=== PATIENT | female | born 1975 | race Caucasian/White ===

== ENCOUNTER 2021-04-29 19:47 | Emergency (ER) | payer OTHER, MEDICARE ==
[~2021-04-29 19:47] MED LIST: ALLEGRA ALLERG180 MG PO; MAXALT10 MG PO; NAPROXEN500 MG PO; NEURONTIN300 MG PO; NP THYROID60 MG PO; PYRIDIUM200 MG PO; SUDAFED30 MG PO; TRAMADOL HCL50 MG PO; TRIAMTERENE PO; ULTRAM50 MG PO; ZOFRAN4 MG PO
[2021-04-29 21:39] LABS: BASOPHIL 0.3 % (0-2); EOSINOPHIL 0.2 % (0-5); HCT 42.7 % (37.0-47.0); HGB 15.3 g/dl (12.5-16.0); LYMPHOCYTE 5.1 % (15-48); MCH 29.4 pg (25.0-31.0); MCHC 35.8 g/dL (32.0-36.0); MPV 10.1 fL (6.0-9.5); NEUTROPHIL 90.1 % (41-80); NRBC 0; PLT 277 K/uL (150-400); RBC 5.21 M/uL (4.20-5.40); RDW 12.3 % (11.5-14.0); WBC 14.2 K/uL (4.0-10.5)
[2021-04-29 21:52] LABS: INR 0.92 (0.9-1.2); PROTHROMBIN TIME 11.8 SECONDS (11.8-13.4); PTT 31.9 SECONDS (24.4-34.7)
[2021-04-29 21:53] LABS: D-DIMER 0.5 ug/mLFEU (0.00-0.41)
[2021-04-29 22:09] LABS: BILIRUBIN - TOTAL 0.3 mg/dL (0.2-1.0); BUN/CREAT RATIO (CALC) 8.6 RATIO; C-REACTIVE PROTEIN 0.7 mg/dL (<=0.90); CREATININE 0.7 mg/dL (0.51-0.95); GLOBULIN (CALCULATION) 3.7 g/dL; MAGNESIUM 1.2 mg/dL (1.8-2.4); POTASSIUM 2.5 mmol/L (3.5-5.1); TOTAL PROTEIN 7.7 g/dL (6.4-8.2)
[2021-04-29 22:17] LABS: PRO-BNP 26 pg/mL (<125)
[2021-04-29 22:45] LABS: LACTIC ACID 1.9 mmol/L (0.4-1.9)
[2021-04-30 02:29] LABS: BILIRUBIN NEGATIVE (NEGATIVE); BLOOD NEGATIVE Ery/uL (NEGATIVE); CLARITY CLEAR (CLEAR); COLOR YELLOW (YELLOW); GLUCOSE (U) NORMAL (NORMAL); LEUKOCYTES NEGATIVE Leu/uL (NEGATIVE); NITRITE NEGATIVE (NEGATIVE); PROTEIN TRACE (LOW) mg/dL (NEGATIVE); SPECIFIC GRAVITY 1.015 (1.001-1.030); UROBILINOGEN 0.2 mg/dL (0.2-1.0)
[2021-04-30] MEDS ORDERED: ONDANSETRON ODT4 MG PO (04:50)
[2021-04-30 05:29] LABS: BUN/CREAT RATIO (CALC) 14.9 RATIO; CREATININE 0.67 mg/dL (0.51-0.95); POTASSIUM 3.4 mmol/L (3.5-5.1)
== END 2021-04-30 05:59 | disposition home or self-care (01) ==
LOC: FER 19:47
PROVIDERS: Emergency Medicine; Internal Medicine
DX: U07.1 COVID-19 (principal); E87.6 Hypokalemia; E83.42 Hypomagnesemia; J44.9 Chronic obstructive pulmonary disease, unspecified; Z23 Encounter for immunization; Z88.0 Allergy status to penicillin; Z88.2 Allergy status to sulfonamides; Z88.5 Allergy status to narcotic agent
CPT/HCPCS: 36415; 70450; 80048; 80053; 81003; 82728; 83605; 83615; 83690; 83735; 83880; 84145; 84484; 85025; 85379; 85610; 85730; 86140; 94760; J1100; J1170; J1885; J2405; J3475; J3480; J7030; J7050; M0245; Q0245; U0002

== ENCOUNTER 2021-07-16 11:05 | Emergency (ER) | payer OTHER, MEDICARE ==
[~2021-07-16] VITALS: Ht 170.2 cm; Wt 67.1 kg
[~2021-07-16 11:05] MED LIST changes: +ONDANSETRON ODT4 MG PO
[2021-07-16 13:09] LABS: BASOPHIL 0.6 % (0-2); EOSINOPHIL 1.6 % (0-5); HCT 38.9 % (37.0-47.0); HGB 13.4 g/dl (12.5-16.0); LYMPHOCYTE 23.4 % (15-48); MCH 29.1 pg (25.0-31.0); MCHC 34.4 g/dL (32.0-36.0); MCV 84.4 fL (78.0-100.0); MONOCYTE 6.1 % (0-12); MPV 10.4 fL (6.0-9.5); NEUTROPHIL 68.1 % (41-80); NRBC 0; PLT 307 K/uL (150-400); RBC 4.61 M/uL (4.20-5.40); RDW 12.6 % (11.5-14.0); WBC 10.1 K/uL (4.0-10.5)
[2021-07-16 13:36] LABS: BUN/CREAT RATIO (CALC) 16.4 RATIO; CREATININE 0.61 mg/dL (0.51-0.95)
[2021-07-16] MEDS ORDERED: CLEOCIN300 MG PO (14:48)
[2021-07-16] MEDS ORDERED: KLOR-CON M2020 MEQ PO (14:49)
[2021-07-16] MEDS ORDERED: IBU800 MG PO (14:51)
== END 2021-07-16 16:45 | disposition home or self-care (01) ==
LOC: FER 11:05
PROVIDERS: Nurse Practitioner Family
DX: K11.20 Sialoadenitis, unspecified (principal); E87.6 Hypokalemia; J44.9 Chronic obstructive pulmonary disease, unspecified; Z88.2 Allergy status to sulfonamides; Z88.5 Allergy status to narcotic agent
CPT/HCPCS: 36415; 70487; 80048; 85025; J1885; J2405; J7030; Q9967

== ENCOUNTER 2021-11-12 17:48 | Emergency (ER) | payer OTHER, MEDICARE ==
[~2021-11-12 17:48] MED LIST changes: +CLEOCIN300 MG PO; +IBU800 MG PO; +KLOR-CON M2020 MEQ PO
[2021-11-12 19:10] LABS: BASOPHIL 0.7 % (0-2); EOSINOPHIL 1.2 % (0-5); HCT 38.9 % (37.0-47.0); HGB 13.9 g/dl (12.5-16.0); LYMPHOCYTE 30.3 % (15-48); MCH 29.8 pg (25.0-31.0); MCHC 35.7 g/dL (32.0-36.0); MCV 83.3 fL (78.0-100.0); MONOCYTE 8.2 % (0-12); MPV 10.6 fL (6.0-9.5); NEUTROPHIL 59.3 % (41-80); NRBC 0; PLT 325 K/uL (150-400); RBC 4.67 M/uL (4.20-5.40); WBC 7.6 K/uL (4.0-10.5)
[2021-11-12 19:18] LABS: INR 0.93 (0.9-1.2); PROTHROMBIN TIME 11.9 SECONDS (11.8-13.4)
[2021-11-12 19:19] LABS: PTT 33.7 SECONDS (24.4-34.7)
[2021-11-12 19:20] LABS: D-DIMER 0.3 ug/mLFEU (0.00-0.41)
[2021-11-12 19:25] LABS: MONOSPOT (MONONUCLEOSIS) NEGATIVE (NEGATIVE)
[2021-11-12 19:42] LABS: IRON % SATURATION 16.7 %SAT (20-50)
[2021-11-12 19:45] LABS: CORONAVIRUS 2019 SARS-COV-2 NEGATIVE (NEGATIVE); INFLUENZA A NAA NEGATIVE (NEGATIVE)
[2021-11-12 20:41] LABS: ALBUMIN 3.9 g/dL (3.4-5.0); ALKALINE PHOSHATASE 67 U/L (46-116); ALT 46 U/L (14-59); AST 25 U/L (15-37); BILIRUBIN - TOTAL 0.3 mg/dL (0.2-1.0); BUN 11 mg/dL (7-18); BUN/CREAT RATIO (CALC) 15.9 RATIO; CHLORIDE 99 mmol/L (98-107); CO2 (BICARBONATE) 26 mmol/L (21-32); CPK 180 U/L (26-192); CREATININE 0.69 mg/dL (0.51-0.95); FOLIC ACID (SERUM) 37.7 ng/mL (8.6-58.9); GLOBULIN (CALCULATION) 3.4 g/dL; GLUCOSE 103 mg/dL (74-106); LIPASE 76 U/L (73-393); MAGNESIUM 1.7 mg/dL (1.8-2.4); POTASSIUM 2.8 mmol/L (3.5-5.1); TOTAL PROTEIN 7.3 g/dL (6.4-8.2)
[2021-11-12 20:43] LABS: C-REACTIVE PROTEIN < 0.20 mg/dL (<=0.90)
[2021-11-12 20:48] LABS: BILIRUBIN NEGATIVE (NEGATIVE); BLOOD NEGATIVE Ery/uL (NEGATIVE); CLARITY CLEAR (CLEAR); COLOR YELLOW (YELLOW); GLUCOSE (U) NORMAL (NORMAL); LEUKOCYTES NEGATIVE Leu/uL (NEGATIVE); NITRITE NEGATIVE (NEGATIVE); PROTEIN NEGATIVE (NEGATIVE); UROBILINOGEN 0.2 mg/dL (0.2-1.0); pH 6.5 (5.0-9.0)
[2021-11-12 20:48] LABS: AMPHETAMINES NEGATIVE (NEGATIVE); BARBITURATES NEGATIVE (NEGATIVE); ECSTASY (MDMA) NEGATIVE (NEGATIVE); MARIJUANA (THC) NEGATIVE (NEGATIVE); METHADONE NEGATIVE (NEGATIVE); OPIATES NEGATIVE (NEGATIVE); OXYCODONE NEGATIVE (NEGATIVE)
== END 2021-11-13 02:50 | disposition home or self-care (01) ==
LOC: FER 17:48
PROVIDERS: Emergency Medicine; Internal Medicine
DX: E87.6 Hypokalemia (principal); E83.42 Hypomagnesemia; I10 Essential (primary) hypertension; J44.9 Chronic obstructive pulmonary disease, unspecified; Z88.0 Allergy status to penicillin; Z88.2 Allergy status to sulfonamides; Z88.5 Allergy status to narcotic agent; Z87.891 Personal history of nicotine dependence; Z28.310 Unvaccinated for COVID-19; Z20.822 Contact with and (suspected) exposure to COVID-19
CPT/HCPCS: 36415; 80053; 80305; 81003; 82550; 82607; 82728; 82746; 83540; 83550; 83605; 83690; 83735; 83880; 84145; 84439; 84443; 84484; 85025; 85379; 85610; 85730; 86140; 86308; 93005; J3475; J3480; J7050; U0002

== ENCOUNTER 2021-11-29 18:55 | Emergency (ER) | payer OTHER, MEDICARE ==
[2021-11-29 20:01] LABS: BASOPHIL 0.7 % (0-2); EOSINOPHIL 1.3 % (0-5); HCT 38.5 % (37.0-47.0); HGB 13.1 g/dl (12.5-16.0); LYMPHOCYTE 29.9 % (15-48); MCH 29.5 pg (25.0-31.0); MCV 86.7 fL (78.0-100.0); MONOCYTE 6.6 % (0-12); MPV 10.9 fL (6.0-9.5); NEUTROPHIL 61.3 % (41-80); NRBC 0; PLT 287 K/uL (150-400); RBC 4.44 M/uL (4.20-5.40); RDW 11.9 % (11.5-14.0)
[2021-11-29 20:30] LABS: ALBUMIN 3.5 g/dL (3.4-5.0); BILIRUBIN - TOTAL 0.1 mg/dL (0.2-1.0); BUN/CREAT RATIO (CALC) 11.7 RATIO; CREATININE 0.77 mg/dL (0.51-0.95); GLOBULIN (CALCULATION) 3.4 g/dL; MAGNESIUM 1.5 mg/dL (1.8-2.4); PHOSPHORUS 2.6 mg/dL (2.6-4.7); POTASSIUM 3.4 mmol/L (3.5-5.1); TOTAL PROTEIN 6.9 g/dL (6.4-8.2)
== END 2021-11-30 00:21 | disposition home or self-care (01) ==
LOC: FER 18:55
PROVIDERS: Emergency Medicine
DX: R07.89 Other chest pain (principal); E87.6 Hypokalemia; E83.42 Hypomagnesemia; J44.9 Chronic obstructive pulmonary disease, unspecified; Z88.5 Allergy status to narcotic agent; Z88.2 Allergy status to sulfonamides; Z88.0 Allergy status to penicillin; Z86.16 Personal history of COVID-19; Z87.891 Personal history of nicotine dependence; Z28.310 Unvaccinated for COVID-19
CPT/HCPCS: 36415; 71045; 80053; 83735; 83880; 84100; 84443; 84484; 85025; 85379; 93005; J3475; J7050

== ENCOUNTER 2021-12-31 19:09 | Emergency (ER) | payer OTHER, MEDICARE ==
[2021-12-31 20:01] LABS: BASOPHIL 0.6 % (0-2); EOSINOPHIL 1.4 % (0-5); HGB 13.7 g/dl (12.5-16.0); LYMPHOCYTE 30.9 % (15-48); MCHC 35.1 g/dL (32.0-36.0); MCV 85.5 fL (78.0-100.0); MONOCYTE 8.6 % (0-12); MPV 10.7 fL (6.0-9.5); NEUTROPHIL 58.1 % (41-80); NRBC 0; PLT 312 K/uL (150-400); RBC 4.56 M/uL (4.20-5.40); RDW 12.6 % (11.5-14.0); WBC 8.4 K/uL (4.0-10.5)
[2021-12-31 20:14] LABS: ALBUMIN 3.9 g/dL (3.4-5.0); BILIRUBIN - TOTAL 0.3 mg/dL (0.2-1.0); BUN/CREAT RATIO (CALC) 18.6 RATIO; CREATININE 0.86 mg/dL (0.51-0.95); GLOBULIN (CALCULATION) 3.4 g/dL; MAGNESIUM 1.7 mg/dL (1.8-2.4); PHOSPHORUS 4.1 mg/dL (2.6-4.7); POTASSIUM 2.9 mmol/L (3.5-5.1); TOTAL PROTEIN 7.3 g/dL (6.4-8.2)
== END 2021-12-31 23:04 | disposition home or self-care (01) ==
LOC: FER 19:09
PROVIDERS: Emergency Medicine
DX: R07.89 Other chest pain (principal); N18.9 Chronic kidney disease, unspecified; Z86.16 Personal history of COVID-19; Z87.891 Personal history of nicotine dependence; Z88.0 Allergy status to penicillin; Z88.2 Allergy status to sulfonamides; Z88.5 Allergy status to narcotic agent; Z28.310 Unvaccinated for COVID-19
CPT/HCPCS: 36415; 71045; 80053; 83735; 84100; 84484; 85025; 85379; 93005; J1885; J3475; J3480; J7050

== ENCOUNTER 2022-01-31 13:28 | Emergency (ER) | payer OTHER, MEDICARE ==
[2022-01-31 14:22] LABS: BILIRUBIN NEGATIVE (NEGATIVE); BLOOD NEGATIVE Ery/uL (NEGATIVE); CLARITY CLEAR (CLEAR); COLOR YELLOW (YELLOW); GLUCOSE (U) NORMAL (NORMAL); LEUKOCYTES NEGATIVE Leu/uL (NEGATIVE); NITRITE NEGATIVE (NEGATIVE); PROTEIN NEGATIVE (NEGATIVE); UROBILINOGEN 0.2 mg/dL (0.2-1.0)
[2022-01-31 14:23] LABS: BASOPHIL 0.6 % (0-2); EOSINOPHIL 0.9 % (0-5); HCT 39.8 % (37.0-47.0); HGB 13.5 g/dl (12.5-16.0); LYMPHOCYTE 9.7 % (15-48); MCH 29.5 pg (25.0-31.0); MCHC 33.9 g/dL (32.0-36.0); MCV 86.9 fL (78.0-100.0); MONOCYTE 10.4 % (0-12); MPV 10.6 fL (6.0-9.5); NEUTROPHIL 77.9 % (41-80); NRBC 0; PLT 248 K/uL (150-400); RBC 4.58 M/uL (4.20-5.40); RDW 13.2 % (11.5-14.0); WBC 6.6 K/uL (4.0-10.5)
[2022-01-31 14:37] LABS: BUN/CREAT RATIO (CALC) 14.7 RATIO; CREATININE 0.68 mg/dL (0.51-0.95); MAGNESIUM 1.6 mg/dL (1.8-2.4); POTASSIUM 3.1 mmol/L (3.5-5.1)
[2022-01-31 14:45] LABS: CORONAVIRUS 2019 SARS-COV-2 POSITIVE (NEGATIVE); INFLUENZA A NAA NEGATIVE (NEGATIVE)
== END 2022-01-31 16:00 | disposition home or self-care (01) ==
LOC: FER 13:28
PROVIDERS: Nurse Practitioner Family
DX: U07.1 COVID-19 (principal); R07.89 Other chest pain; E87.6 Hypokalemia; J44.9 Chronic obstructive pulmonary disease, unspecified; Z28.310 Unvaccinated for COVID-19; Z88.0 Allergy status to penicillin; Z88.2 Allergy status to sulfonamides; Z88.5 Allergy status to narcotic agent; Z87.891 Personal history of nicotine dependence
CPT/HCPCS: 36415; 71045; 80048; 81003; 83735; 84484; 85025; 93005; U0002

== ENCOUNTER 2022-02-15 12:45 | Emergency (ER) | payer OTHER, MEDICARE ==
[2022-02-15 15:22] LABS: BASOPHIL 0.5 % (0-2); EOSINOPHIL 0.9 % (0-5); HCT 40.4 % (37.0-47.0); LYMPHOCYTE 20.8 % (15-48); MCH 30.3 pg (25.0-31.0); MCHC 34.7 g/dL (32.0-36.0); MCV 87.4 fL (78.0-100.0); MONOCYTE 7.6 % (0-12); MPV 10.9 fL (6.0-9.5); NEUTROPHIL 69.8 % (41-80); NRBC 0; PLT 312 K/uL (150-400); RBC 4.62 M/uL (4.20-5.40); RDW 12.8 % (11.5-14.0); WBC 11.1 K/uL (4.0-10.5)
[2022-02-15 16:13] LABS: ALBUMIN 3.7 g/dL (3.4-5.0); BILIRUBIN - TOTAL 0.4 mg/dL (0.2-1.0); BUN/CREAT RATIO (CALC) 9.6 RATIO; CREATININE 0.73 mg/dL (0.51-0.95); GLOBULIN (CALCULATION) 3.2 g/dL; MAGNESIUM 1.8 mg/dL (1.8-2.4); POTASSIUM 3.3 mmol/L (3.5-5.1); TOTAL PROTEIN 6.9 g/dL (6.4-8.2)
[2022-02-15] MEDS ORDERED: MEDROL 4MG DOSEP4 MG PO (17:00)
[2022-02-15] MEDS ORDERED: TRAMADOL HCL50 MG PO (17:00)
== END 2022-02-15 17:26 | disposition home or self-care (01) ==
LOC: FER 12:45
PROVIDERS: Nurse Practitioner Family
DX: M94.0 Chondrocostal junction syndrome [Tietze] (principal); J44.9 Chronic obstructive pulmonary disease, unspecified; Z28.310 Unvaccinated for COVID-19; Z88.0 Allergy status to penicillin; Z88.2 Allergy status to sulfonamides; Z88.5 Allergy status to narcotic agent; Z88.7 Allergy status to serum and vaccine
CPT/HCPCS: 36415; 71045; 80053; 83735; 84484; 85025; 85379; 93005; J1100

== ENCOUNTER 2022-03-22 06:10 | Emergency (ER) | payer OTHER, MEDICARE ==
[~2022-03-22 06:10] MED LIST changes: +MEDROL 4MG DOSEP4 MG PO
[2022-03-22 06:53] LABS: BASOPHIL 0.5 % (0-2); EOSINOPHIL 1.4 % (0-5); HCT 39.2 % (37.0-47.0); HGB 13.6 g/dl (12.5-16.0); LYMPHOCYTE 15.5 % (15-48); MCH 30.2 pg (25.0-31.0); MCHC 34.7 g/dL (32.0-36.0); MCV 87.1 fL (78.0-100.0); MONOCYTE 5.4 % (0-12); MPV 10.7 fL (6.0-9.5); NEUTROPHIL 76.9 % (41-80); NRBC 0; PLT 325 K/uL (150-400); RDW 12.4 % (11.5-14.0); WBC 11.7 K/uL (4.0-10.5)
[2022-03-22 07:00] LABS: BILIRUBIN NEGATIVE (NEGATIVE); BLOOD NEGATIVE Ery/uL (NEGATIVE); CLARITY CLEAR (CLEAR); COLOR YELLOW (YELLOW); GLUCOSE (U) NORMAL (NORMAL); LEUKOCYTES NEGATIVE Leu/uL (NEGATIVE); NITRITE NEGATIVE (NEGATIVE); PROTEIN NEGATIVE (NEGATIVE); SPECIFIC GRAVITY >=1.030 (1.001-1.030); UROBILINOGEN 0.2 mg/dL (0.2-1.0); pH 5.5 (5.0-9.0)
[2022-03-22 07:03] LABS: PROTHROMBIN TIME 11.9 SECONDS (11.9-13.9)
[2022-03-22 07:04] LABS: D-DIMER < 0.27 ug/mLFEU (0.00-0.41)
[2022-03-22 07:26] LABS: ALBUMIN 3.7 g/dL (3.4-5.0); ALKALINE PHOSHATASE 77 U/L (46-116); ALT 40 U/L (14-59); AST 28 U/L (15-37); BUN 7 mg/dL (7-18); BUN/CREAT RATIO (CALC) 9.3 RATIO; CHLORIDE 99 mmol/L (98-107); CO2 (BICARBONATE) 28 mmol/L (21-32); CREATININE 0.75 mg/dL (0.51-0.95); GLOBULIN (CALCULATION) 3.1 g/dL; GLUCOSE 99 mg/dL (74-106); LIPASE 78 U/L (73-393); MAGNESIUM 1.5 mg/dL (1.8-2.4); POTASSIUM 3.5 mmol/L (3.5-5.1); TOTAL PROTEIN 6.8 g/dL (6.4-8.2)
[2022-03-22 07:32] LABS: CORONAVIRUS 2019 SARS-COV-2 NEGATIVE (NEGATIVE); INFLUENZA A NAA NEGATIVE (NEGATIVE)
[2022-03-22 15:59] LABS: BILIRUBIN - TOTAL 0.2 mg/dL (0.2-1.0)
== END 2022-03-22 09:39 | disposition home or self-care (01) ==
LOC: FER 06:10
PROVIDERS: Internal Medicine
DX: N39.0 Urinary tract infection, site not specified (principal); M19.90 Unspecified osteoarthritis, unspecified site; N83.201 Unspecified ovarian cyst, right side; J44.9 Chronic obstructive pulmonary disease, unspecified; Z88.0 Allergy status to penicillin; Z88.2 Allergy status to sulfonamides; Z88.5 Allergy status to narcotic agent; Z20.822 Contact with and (suspected) exposure to COVID-19
CPT/HCPCS: 36415; 71250; 80053; 81003; 83605; 83690; 83735; 83880; 84145; 84439; 84443; 84484; 85025; 85379; 85610; 85730; 93005; J0696; J1885; U0002

== ENCOUNTER 2022-05-01 14:53 | Emergency (ER) | payer OTHER, MEDICARE | END 2022-05-01 15:59 | disposition other institution (70) | LOC: FER 14:53 | DX: S62.631B Displaced fracture of distal phalanx of left index finger, initial encounter for open fracture (principal); Z23 Encounter for immunization; W26.8XXA Contact with other sharp object(s), not elsewhere classified, initial encounter; Y92.009 Unspecified place in unspecified non-institutional (private) residence as the place of occurrence of the external cause | CPT/HCPCS: 73130; 90471; 90715; J1170 ==

== ENCOUNTER 2022-05-03 10:55 | Emergency (ER) | payer OTHER, MEDICARE ==
[2022-05-03 12:15] LABS: BASOPHIL 0.3 % (0-2); EOSINOPHIL 1.1 % (0-5); HCT 33.9 % (37.0-47.0); HGB 11.7 g/dl (12.5-16.0); LYMPHOCYTE 11.6 % (15-48); MCH 29.9 pg (25.0-31.0); MCHC 34.5 g/dL (32.0-36.0); MCV 86.7 fL (78.0-100.0); MONOCYTE 5.6 % (0-12); MPV 10.6 fL (6.0-9.5); NRBC 0; PLT 267 K/uL (150-400); RBC 3.91 M/uL (4.20-5.40); RDW 12.1 % (11.5-14.0); WBC 11.4 K/uL (4.0-10.5)
[2022-05-03 12:23] LABS: INR 0.94 (0.9-1.2); PROTHROMBIN TIME 12.3 SECONDS (11.9-13.9); PTT 29.8 SECONDS (24.9-34.6)
[2022-05-03 12:31] LABS: MAGNESIUM 1.2 mg/dL (1.8-2.4)
[2022-05-03 12:44] LABS: ALBUMIN 3.1 g/dL (3.4-5.0); BILIRUBIN - TOTAL 0.5 mg/dL (0.2-1.0); BUN/CREAT RATIO (CALC) 12.8 RATIO; CREATININE 0.86 mg/dL (0.51-0.95); POTASSIUM 3.4 mmol/L (3.5-5.1); TOTAL PROTEIN 6.1 g/dL (6.4-8.2)
[2022-05-03 14:52] LABS: CLARITY SLIGHTLY HAZY (CLEAR); COLOR YELLOW (YELLOW); pH 5.5 (5.0-9.0)
[2022-05-03 14:53] LABS: BILIRUBIN NEGATIVE (NEGATIVE); BLOOD NEGATIVE Ery/uL (NEGATIVE); GLUCOSE (U) NORMAL (NORMAL); LEUKOCYTES NEGATIVE Leu/uL (NEGATIVE); NITRITE NEGATIVE (NEGATIVE); PROTEIN NEGATIVE (NEGATIVE); UROBILINOGEN 0.2 mg/dL (0.2-1.0)
[2022-05-03] MEDS ORDERED: NORCO 5-325 TA1 EACH PO (15:18)
[2022-05-03] MEDS ORDERED: PROMETHEGA12.5 MG/SU PR (15:18)
[2022-05-03] MEDS ORDERED: PEPCID AC20 MG PO (15:18)
[2022-05-03] MEDS ORDERED: ULTRAM50 MG PO (15:52)
== END 2022-05-03 16:30 | disposition home or self-care (01) ==
LOC: FER 10:55
PROVIDERS: Emergency Medicine
DX: R07.89 Other chest pain (principal); K21.9 Gastro-esophageal reflux disease without esophagitis; R11.2 Nausea with vomiting, unspecified; I25.2 Old myocardial infarction; I10 Essential (primary) hypertension; J44.9 Chronic obstructive pulmonary disease, unspecified; Z90.49 Acquired absence of other specified parts of digestive tract; Z90.710 Acquired absence of both cervix and uterus; Z88.0 Allergy status to penicillin; Z88.2 Allergy status to sulfonamides; Z88.5 Allergy status to narcotic agent
CPT/HCPCS: 36415; 71045; 80053; 81003; 83690; 83735; 84484; 85025; 85610; 85730; 93005; J0780; J1170; J1885; J2405; J3475; J3480; J7030